=== PATIENT | female | born 1965 | race Caucasian/White ===

== ENCOUNTER 2019-02-13 19:31 | Emergency (ER) | payer OTHER ==
[~2019-02-13] VITALS: Ht 160 cm; Wt 86.2 kg
[~2019-02-13 19:31] MED LIST: Aldactazide 251 EACH PO; Alph-E-Mixed400 UNIT PO; Crutch1 EACH MISC; Flomax0.4 MG PO; HYDACE5 PO; Hair, Skin & N1 EACH PO; MECL25 PO; Maxalt10 MG; Norco 5-325 Ta1 EACH PO; Omeprazole20 M1 PO; POTA10T PO; PROM25 PO; TURMERIC500 M2 PO
[2019-02-13] MEDS ORDERED: PRAM.5 PO (19:57)
== END 2019-02-13 20:31 | disposition home or self-care (01) ==
LOC: ER 19:31
DX: S61.211A Laceration without foreign body of left index finger without damage to nail, initial encounter (principal); Z79.899 Other long term (current) drug therapy; Z87.891 Personal history of nicotine dependence; W26.0XXA Contact with knife, initial encounter
CPT/HCPCS: 12001; 99282-25

== ENCOUNTER → 2019-12-24 | Outpatient (CLI) | payer OTHER ==
[~2019-12-24] MED LIST changes: +PRAM.5 PO
[2019-12-26 16:28] LABS: CORONAVIRUS (COVID19) CSH-NRL Negative (Negative)
== END | disposition home or self-care (01) ==
LOC: LAB EV 08:21 → LAB SHORT 08:21
PROVIDERS: Physician Assistant Medical
DX: Z20.828 Contact with and (suspected) exposure to other viral communicable diseases (principal)
CPT/HCPCS: U0003

== ENCOUNTER → 2024-06-03 | Outpatient (CLI) | payer OTHER ==
[~2024-06-03] MED LIST changes: +DOXE10; +LOSARTAN POTASS25 M2; +NEURONTIN300 MG; +ROPINIROLE HC0.2510; +ROSUVASTATIN CAL5 MG
[2024-06-10 13:24] LABS: HPV HIGH RISK BY TMA Not Detected; HPV SOURCE Cervical
== END ==
LOC: LAB 15:12 → LAB SHORT 15:12
PROVIDERS: Family Medicine
DX: Z01.419 Encounter for gynecological examination (general) (routine) without abnormal findings (principal)
CPT/HCPCS: 87624; G0123

== ENCOUNTER 2024-06-10 07:23 | Day surgery (SDC) | payer OTHER ==
[~2024-06-10] VITALS: Ht 160 cm; Wt 93.4 kg
[~2024-06-10 07:23] MED LIST changes: -DOXE10; -LOSARTAN POTASS25 M2; -NEURONTIN300 MG; -ROPINIROLE HC0.2510; -ROSUVASTATIN CAL5 MG
[2024-06-10] MEDS ORDERED: propofoL 50 ML IV ONE (07:34)
[2024-06-10] MEDS ORDERED: Lactated Ringer's 1,000 ML IV ONE ×2 (07:34→08:19)
[2024-06-10] MEDS ORDERED: ROSUVASTATIN CAL5 MG (07:41)
[2024-06-10] MEDS ORDERED: DOXE10 (07:56)
[2024-06-10] MEDS ORDERED: NEURONTIN300 MG (07:59)
[2024-06-10] MEDS ORDERED: LOSARTAN POTASS25 M2 (07:59)
[2024-06-10] MEDS ORDERED: ROPINIROLE HC0.2510 (08:01)
[2024-06-10] MEDS ORDERED: Ondansetron HCl 2 MG / ML 2ML Vial ONE (09:08)
[2024-06-10 09:48] VITALS: BP 144/85
== END 2024-06-10 10:03 | disposition home or self-care (01) ==
LOC: ORSCSDS 07:23
PROVIDERS: Surgery
PROC: 0DJD8ZZ Inspection of Lower Intestinal Tract, Via Natural or Artificial Opening Endoscopic (ICD-10-PCS; principal; 2024-06-10 08:45)
DX: Z12.11 Encounter for screening for malignant neoplasm of colon (principal); K57.30 Diverticulosis of large intestine without perforation or abscess without bleeding; E11.9 Type 2 diabetes mellitus without complications; K21.9 Gastro-esophageal reflux disease without esophagitis; I10 Essential (primary) hypertension; E78.5 Hyperlipidemia, unspecified; Z79.899 Other long term (current) drug therapy; Z87.891 Personal history of nicotine dependence; E66.9 Obesity, unspecified; Z68.38 Body mass index [BMI] 38.0-38.9, adult
CPT/HCPCS: 82947; J2405; J2704; J7120